=== PATIENT | male | born 1970 | race Asian ===

== ENCOUNTER 2019-06-17 17:04 | Emergency (ER) | payer OTHER, BC ==
[~2019-06-17] VITALS: Ht 167.6 cm; Wt 65.8 kg
[2019-06-17 17:18] VITALS: Ht 167.6 cm; Wt 65.8 kg
[2019-06-17 19:35] VITALS: BP 121/76
== END 2019-06-17 19:50 | disposition home or self-care (01) ==
LOC: ED 17:04
DX: S16.1XXA Strain of muscle, fascia and tendon at neck level, initial encounter (principal); S39.012A Strain of muscle, fascia and tendon of lower back, initial encounter; S60.222A Contusion of left hand, initial encounter; I10 Essential (primary) hypertension; E11.9 Type 2 diabetes mellitus without complications; V49.9XXA Car occupant (driver) (passenger) injured in unspecified traffic accident, initial encounter; Y93.I9 Activity, other involving external motion; Y92.413 State road as the place of occurrence of the external cause; Y99.8 Other external cause status
CPT/HCPCS: J1885